=== PATIENT | male | born 1925 | race Caucasian/White ===

== ENCOUNTER → 2016-12-13 | Outpatient (CLI) | payer MEDICARE ==
[2015-08-07 11:05] VITALS: BP 165/75
[~2016-12-13] MED LIST: VALS1TAB18 PO; WARF5TAB7 PO; WARF7.5T PO
--- NOTE | 2016-12-13 13:16 | KCIC ---
CHEST, TWO VIEWS, 12/13/2016: History: Congestive heart failure Comparison is made to a study from 06/10/2014. 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 The heart size is normal. There is calcific plaquing and tortuosity of the thoracic aorta. There is mild basilar scarring. No acute infiltrates are seen. There is no evidence of pleural fluid. Mild spurring is present spine. IMPRESSION: 1. 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 2. Aortic atherosclerosis and ectasia. 3. No acute abnormality is detected. Electronically signed by: Mark Anthony York MD (Dec 13, 2016 13:15:45)
== END | disposition home or self-care (01) ==
LOC: KCIC 10:56
PROVIDERS: ATTEND Physician Assistant Medical
DX: I70.0 Atherosclerosis of aorta (principal); Q25.46 Tortuous aortic arch; I50.9 Heart failure, unspecified
CPT/HCPCS: 71020